=== PATIENT | male | born 1990 | race Caucasian/White ===

== ENCOUNTER 2017-01-02 08:47 | Emergency (ER) | payer OTHER ==
[2017-01-02 09:01] VITALS: BP 128/76
--- NOTE | 2017-01-02 09:07 | UC ---
Throat Pain/Nasal Ryley HPI - HPI Summary HPI Summary: 26 yo healthy male reports sudden uvula swelling this morning upon waking reports initially was difficult to breath but resolved within 15 minutes, now reports mild swelling and no difficulty breathing. He was concerned and wanted to be evaluated. Denies sore throat. no fevers or chills. Feels that he has had a mild cold with runny nose the last week. reports this happened once last summer when he was driving to work and reports acute onset of uvula swelling which resolved in 15-20 minutes. Patient reports he drank "a lot of alcohol" last night, and has had decrease water intake the last 2 days. - History of Current Complaint Chief Complaint: UCGeneralIllness Stated Complaint: SORE THROAT Time Seen by Provider: 01/02/17 09:06 Hx Obtained From: Patient Onset/Duration: Sudden Onset Severity: Moderate Pain Intensity: 0 Pain Scale Used: 0-10 Numeric Cough: None Associated Signs & Symptoms: Positive: Negative, Nasal Discharge. Negative: Dysphagia, Drooling, Wheezing - Epiglottits Risk Factors Epiglottis Risk Factors: Sudden Onset - Allergies/Home Medications Allergies/Adverse Reactions: Allergies Allergy/AdvReac Type Severity Reaction Status Date / Time No Known Allergies Allergy Verified 01/02/17 08:57 Home Medications: Home Medications Ibuprofen TAB* [Advil TAB*] 400 mg PO Q6H PRN 01/02/17 [History Confirmed ] PMH/Surg Hx/FS Hx/Imm Hx Previously Healthy: Yes - Surgical History Surgical History: None - Family History Known Family History: Positive: Hypertension - Social History Occupation: Employed Full-time Lives: With Family Alcohol Use: Occasionally Substance Use Type: None Smoking Status (MU): Former Smoker Have You Smoked in the Last Year: No When Did the Patient Quit Smoking/Using Tobacco: 2014 - Immunization History Most Recent Influenza Vaccination: Not the 2016/2016 Season Hx Tetanus, Diphtheria Vaccination: Yes Vaccination Up to Date: Yes Review of Systems Constitutional: Negative Skin: Negative Eyes: Negative ENT: Other - uvula swelling Respiratory: Negative Cardiovascular: Negative Gastrointestinal: Negative Genitourinary: Negative Motor: Negative Neurovascular: Negative Musculoskeletal: Negative Neurological: Negative Psychological: Negative All Other Systems Reviewed And Are Negative: Yes Physical Exam Triage Information Reviewed: Yes Appearance: Well-Appearing, No Pain Distress, Well-Nourished Vital Signs: Initial Vital Signs Temp 98.2 F 01/02/17 08:55 Pulse 68 01/02/17 08:55 Resp 16 01/02/17 08:55 BP 128/76 01/02/17 08:55 Pulse Ox 100 01/02/17 08:55 Vital Signs Reviewed: Yes Eye Exam: Normal Eyes: Positive: Conjunctiva Clear ENT: Positive: TMs normal, Other: - uvula noted to be mildly edematous, no erythema or exudate noted, no drooling or muffles voice. Negative: Nasal congestion Neck exam: Normal Neck: Positive: Supple, Nontender, No Lymphadenopathy Respiratory: Positive: Chest non-tender, Lungs clear, Normal breath sounds, No respiratory distress, No accessory muscle use Cardiovascular: Positive: RRR, No Murmur, Pulses Normal, Brisk Capillary Refill Neurological Exam: Normal Neurological: Positive: Alert Psychological Exam: Normal Skin Exam: Normal Throat Pain/Nasal Course/Dx - Differential Dx/Diagnosis Differential Diagnosis/HQI/PQRI: URI Provider Diagnoses: 1. Non-infectious Uvulitis Discharge - Discharge Plan Condition: Stable Disposition: HOME Patient Education Materials: Uvulitis (ED) Referrals: No Primary Care Phys,NOPCP [Primary Care Provider] - Additional Instructions: You have been diagnosed with non-infectious isolate uvulitis thought to be secondary to dehydration, also in the setting of snoring and alcohol use. Increase your fluid intake today with cold fluids, ice chips. Prior and after drinking alcohol be sure to hydrate yourself. If you have any concerning symptoms go to the emergency room.
== END 2017-01-02 09:32 | disposition home or self-care (01) ==
LOC: UCCORT 08:47
DX: K12.2 Cellulitis and abscess of mouth (principal); Z87.891 Personal history of nicotine dependence
CPT/HCPCS: 99201; G0463

== ENCOUNTER 2017-05-10 08:09 | Emergency (ER) | payer OTHER ==
[2017-05-10 08:30] VITALS: BP 126/85
--- NOTE | 2017-05-10 08:34 | UC ---
Skin Complaint HPI - HPI Summary HPI Summary: FOUND SOME DRY BLOOD ON HIS [place] YESTERDAY , MILD TENDERNESS, NO SWELLING , NO REDNESS, NO DISCHARGE - History of Current Complaint Chief Complaint: UCGeneralIllness Time Seen by Provider: 05/10/17 08:24 Stated Complaint: BLEEDING FROM NAVEL Hx Obtained From: Patient Onset/Duration: Gradual Onset, Lasting Days - 1, Resolved Timing: Intermittent Episodes Lasting: - 1 DAY Onset Severity: Mild Current Severity: None Location: Discrete - [place] Character: Pain Aggravating: Touch Alleviating: Nothing Associated Signs & Symptoms: Positive: Negative - Allergy/Home Medications Allergies/Adverse Reactions: Allergies Allergy/AdvReac Type Severity Reaction Status Date / Time No Known Allergies Allergy Verified 05/10/17 08:19 Home Medications: Home Medications NK [No Home Medications Reported] 05/10/17 [History Confirmed 05/10/17] Review of Systems Constitutional: Negative Skin: Negative Eyes: Negative ENT: Negative Respiratory: Negative All Other Systems Reviewed And Are Negative: Yes PMH/Surg Hx/FS Hx/Imm Hx Previously Healthy: Yes - Surgical History Surgical History: None - Family History Known Family History: Positive: Hypertension - Social History Alcohol Use: Occasionally Substance Use Type: None Smoking Status (MU): Former Smoker Have You Smoked in the Last Year: No When Did the Patient Quit Smoking/Using Tobacco: 2014 - Immunization History Most Recent Influenza Vaccination: Not the 2015/2016 Season Most Recent Tetanus Shot: Unknown Most Recent Pneumonia Vaccination: N/A Hx Tetanus, Diphtheria Vaccination: Yes Vaccination Up to Date: Yes Physical Exam Triage Information Reviewed: Yes Appearance: Well-Appearing, No Pain Distress, Well-Nourished Vital Signs: Initial Vital Signs Temp 97.4 F 05/10/17 08:19 Pulse 60 05/10/17 08:19 Resp 16 05/10/17 08:19 BP 126/85 05/10/17 08:19 Pulse Ox 100 05/10/17 08:19 Vital Signs Reviewed: Yes Eyes: Positive: Conjunctiva Clear ENT Exam: Normal ENT: Positive: Normal ENT inspection, Hearing grossly normal, Pharynx normal Neck: Positive: Supple, Nontender, No Lymphadenopathy Respiratory: Positive: Chest non-tender, Lungs clear, Normal breath sounds, No respiratory distress Cardiovascular: Positive: RRR, No Murmur, Pulses Normal Abdominal Exam: Normal Abdomen Description: Positive: Nontender, Soft, Other: - UMBILICUS: NO BLEEDING , NO SWELLING, NO ERYTHE, NO LESION OR ABSCESS SEEN. Negative: CVA Tenderness ( R), CVA Tenderness (L), Distended, Guarding Bowel Sounds: Positive: Present Course/Dx - Diagnoses Provider Diagnoses: OBSERVATION FOR THE CONDITION NOT FOUND Discharge - Discharge Plan Condition: Stable Disposition: HOME Referrals: No Primary Care Phys,NOPCP [Primary Care Provider] - If Needed Additional Instructions: NORMAL PHYSICAL EXAM OF THE ABDOMEN / [place] , NO BLEEDING, NO ABSCESS, NO REDNESS SEEN CONT. TO MONITOR, IF NOTED ANY ABNORMAL FINDING / BLEEDING, MAY RETURN BACK TO THE CLINIC
== END 2017-05-10 08:37 | disposition home or self-care (01) ==
LOC: UCCORT 08:09
DX: Z03.89 Encounter for observation for other suspected diseases and conditions ruled out (principal); Z87.891 Personal history of nicotine dependence
CPT/HCPCS: 99211; G0463

== ENCOUNTER 2017-06-23 13:22 | Emergency (ER) | payer SELFPAY ==
[2017-06-23 13:48] VITALS: BP 141/94
[2017-06-23] MEDS ORDERED: Ibuprofen TAB* 400 MG PO ONE (14:03)
--- NOTE | 2017-06-23 14:07 | UC ---
Back Pain HPI - HPI Summary HPI Summary: Pt presents with c/o mild lumbar back pain. 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 Pt states felt fullness in left lower lumbar spine. Pt states his sx improved and again yesterday was in simiar stance with reactivation of discomfort. Pt denies paresthesia, radiation, ext weakness. Pt denies bowel/bladder changes. Pt states has not taken any analgesia. No h/o similar. Pt states pain better after shower. Slight better with stretching. Notices pain increases with sitting or remaining in position too long. pt withotu other complaints pt's medications reviewed at this visit - History of Current Complaint Chief Complaint: UCBackPain Stated Complaint: LOWER BACK INJURY WC Time Seen by Provider: 06/23/17 13:49 Hx Obtained From: Patient Onset/Duration: Sudden Onset, Gradual Onset Timing: Constant, Intermittent Severity Initially: Moderate Severity Currently: Mild Pain Intensity: 2 Pain Scale Used: 0-10 Numeric Character: Dull, Aching, Spasmodic Aggravating: Movement Alleviating: Rest Associated Signs And Symptoms: Positive: Negative - Allergies/Home Medications Allergies/Adverse Reactions: Allergies Allergy/AdvReac Type Severity Reaction Status Date / Time No Known Allergies Allergy Verified 06/23/17 13:48 PMH/Surg Hx/FS Hx/Imm Hx Previously Healthy: Yes - Surgical History Surgical History: None - Family History Known Family History: Positive: Hypertension - Social History Occupation: Employed Full-time Lives: With Family Alcohol Use: Occasionally Substance Use Type: None Smoking Status (MU): Former Smoker Have You Smoked in the Last Year: No When Did the Patient Quit Smoking/Using Tobacco: 2014 - Immunization History Most Recent Influenza Vaccination: no Most Recent Tetanus Shot: Unknown Most Recent Pneumonia Vaccination: N/A Hx Tetanus, Diphtheria Vaccination: Yes Vaccination Up to Date: Yes Review of Systems Constitutional: Negative Skin: Negative Eyes: Negative ENT: Negative Respiratory: Negative Cardiovascular: Negative Gastrointestinal: Negative Genitourinary: Negative Motor: Negative Neurovascular: Negative Musculoskeletal: Other: - lumbar back pain Neurological: Negative Psychological: Negative Is Patient Immunocompromised?: No All Other Systems Reviewed And Are Negative: Yes Physical Exam Triage Information Reviewed: Yes Appearance: Well-Appearing, No Pain Distress, Well-Nourished Vital Signs: Initial Vital Signs Temp 98.1 F 06/23/17 13:42 Pulse 75 06/23/17 13:42 Resp 16 06/23/17 13:42 BP 141/94 06/23/17 13:42 Pulse Ox 100 06/23/17 13:42 Vital Signs Reviewed: Yes Eye Exam: Normal ENT: Positive: Hearing grossly normal Neck: Positive: Supple, Nontender, No Lymphadenopathy Respiratory Exam: Normal Respiratory: Positive: Chest non-tender Cardiovascular: Positive: RRR, No Murmur, Pulses Normal - 2+ DP b/l Musculoskeletal: Positive: Other: - No pain c/t/l/s spinous process + TTP paraspinal mid lumbar >R with palpable spasm- reproducible point tender + SLE b/ l with little discomfort + flex/ext knee, ankle + great to ext Neurological: Positive: Other: - 2+ patellar b/l no clonus + gross sensation throughout Psychological Exam: Normal Diagnostics - Radiology No standard instances Xray Interpretation: Positive (See Comments) - no acute process, fx Radiology Interpretation Completed By: Radiologist Re-Evaluation - Re-Evaluation First Eval Re-Evaluation Time: 14:45 Change: Improved Comment: Pt reports pain improved following motrin. reviewed motrin/apap. rest. stretch. heat and return precautions. Pt in agreement with plan Back Pain Course/Dx - Course Course Of Treatment: Pt with left lumbar paraspinal discomfort following restraining a person at work. Pt with palpable lumbar paraspinal muscle spasm. Pt neurovascular intact wiithout concerning hx. will check imaging. motrin. heat. stretch. pcp recheck. return precautions discussed. Pt comfortable and in agreement with plan - Differential Dx/Diagnosis Provider Diagnoses: low back pain, muscle spasm Discharge - Discharge Plan Condition: Stable Disposition: HOME Patient Education Materials: Low Back Strain (ED) Referrals: No Primary Care Phys,NOPCP [Primary Care Provider] - Additional Instructions: - Apply moist heat 20 minutes at a a time, 2-3 times a day. Once your muscles are warm, slow-gentle stretching exercises are important - Alternate ibuprofen (Advil, Motrin) 600mg and tylenol every 3 hours for pain. Take with food. do NOT take for more than 4-5 days. Take with food - Schedule a follow-up appointment with your primary doctor for early next week. - If you develop severe pain in your lower legs, leg weakness, changes to bowel or bladder, any other concerns you should to go an emergency department for further evaluation - Avoid heavy lifting, straining or pulling - Contact your doctor or return with any questions or concerns
--- NOTE | 2017-06-23 15:03 | RAD ---
INDICATION: Back pain COMPARISON: None TECHNIQUE: AP and lateral views were obtained . FINDINGS: Bones: There are no acute bony findings. There are no significant osteoarthritic findings. Alignment: Normal Disc spaces: The disc spaces are well-maintained Soft tissues: There are no soft tissue abnormalities. IMPRESSION: NEGATIVE EXAMINATION.
== END 2017-06-23 14:54 | disposition home or self-care (01) ==
LOC: UCCORT 13:22
DX: M54.5 Low back pain (principal); M62.838 Other muscle spasm; Z87.891 Personal history of nicotine dependence
CPT/HCPCS: 72100; 99212; A9270-GY; G0463

== ENCOUNTER 2019-04-06 20:28 | Emergency (ER) | payer BC, OTHER ==
[2019-04-06 21:21] VITALS: BP 132/77
--- NOTE | 2019-04-06 21:42 | UC ---
Skin Complaint HPI - HPI Summary HPI Summary: 28-year-old male who found a tick on his left forearm which he thinks has only been there a few hours. - History of Current Complaint Chief Complaint: UCSkin Time Seen by Provider: 04/06/19 21:34 Stated Complaint: TICK BITE Hx Obtained From: Patient Onset/Duration: Sudden Onset Skin Exposure Onset/Duration: Minutes Ago Timing: Constant Onset Severity: Mild Current Severity: Mild Pain Intensity: 0 Location: Other - Left forearm Aggravating Factor(s): Nothing Alleviating Factor(s): Nothing Associated Signs & Symptoms: Positive: Negative - Allergy/Home Medications Allergies/Adverse Reactions: Allergies Allergy/AdvReac Type Severity Reaction Status Date / Time No Known Allergies Allergy Verified 04/06/19 21:22 PMH/Surg Hx/FS Hx/Imm Hx Previously Healthy: Yes - Surgical History Surgical History: None - Family History Known Family History: Positive: Hypertension - Social History Alcohol Use: Occasionally Substance Use Type: None Smoking Status (MU): Former Smoker Have You Smoked in the Last Year: No When Did the Patient Quit Smoking/Using Tobacco: 2014 - Immunization History Most Recent Influenza Vaccination: no Most Recent Tetanus Shot: Unknown Most Recent Pneumonia Vaccination: N/A Hx Tetanus, Diphtheria Vaccination: Yes Vaccination Up to Date: Yes Review of Systems All Other Systems Reviewed And Are Negative: Yes Skin: Positive: Other - Patient noticed a very small tick in his left forearm while he was driving. He believes it has only been there a few hours. Physical Exam Triage Information Reviewed: Yes Appearance: Well-Appearing, No Pain Distress, Well-Nourished Vital Signs: Initial Vital Signs Temp 97.6 F 04/06/19 21:19 Pulse 72 04/06/19 21:19 Resp 19 04/06/19 21:19 BP 132/77 04/06/19 21:19 Pulse Ox 99 04/06/19 21:19 Vital Signs Reviewed: Yes Skin: Positive: Other - Patient has an extremely small black tick minimally embedded in his left forearm which was removed without difficulty using the tick twister. Patient tolerated procedure well. There was not even a red kartik therefore I don't think the tick was embedded very long if at all. Course/Dx - Course Course Of Treatment: Patient tolerated procedure well. Information on tick bites and Lyme disease was given a patient - Diagnoses Provider Diagnosis: Tick bite Discharge - Sign-Out/Discharge Documenting (check all that apply): Patient Departure All imaging exams completed and their final reports reviewed: No Studies - Discharge Plan Condition: Good Disposition: HOME Patient Education Materials: Tick Bite (ED) Referrals: No Primary Care Phys,NOPCP [Primary Care Provider] - Care [facility] [Outside] Additional Instructions: Follow-up with your primary care provider if you develop any fever, joint aches or rashes on your body over the next 2-4 weeks. - Billing Disposition and Condition Condition: GOOD Disposition: Home - Attestation Statements Provider Attestation: Per institutional requirements, I have reviewed the chart, however, I was not consulted specifically or made aware of this patient by the midlevel provider. I did not personally evaluate, interact with , or disposition this patient.
== END 2019-04-06 21:44 | disposition home or self-care (01) ==
LOC: UCCORT 20:28
DX: T63.481A Toxic effect of venom of other arthropod, accidental (unintentional), initial encounter (principal); Y92.9 Unspecified place or not applicable; Z87.891 Personal history of nicotine dependence
CPT/HCPCS: 99211; G0463

== ENCOUNTER 2019-12-09 11:47 | Emergency (ER) | payer BC ==
[2019-12-09 12:51] VITALS: BP 123/76
[2019-12-09 12:53] LABS: Influenza A Molecular POSITIVE (Negative)
--- NOTE | 2019-12-09 13:09 | UC ---
FLU HPI - HPI Summary HPI Summary: 28 year old male symptoms started today- headache, sore throat, cough- non- productive mainly. No SOB, no GI symptoms. fever- 101 ~ 8AM. No PMH, medications as listed. No flu vaccine - History of Current Complaint Chief Complaint: UCRespiratory Stated Complaint: FEVER,COUGH Time Seen by Provider: 12/09/19 13:09 Hx Obtained From: Patient Onset/Duration: Sudden Onset, Lasting Days Severity Currently: Mild Severity Initially: Mild Pain Intensity: 3 Pain Scale Used: 0-10 Numeric Associated Signs & Symptoms: Positive: Fever, T Max - 101 - Risk Factors Influenza Risk Factors: Negative - Allergy/Home Medications Allergies/Adverse Reactions: Allergies Allergy/AdvReac Type Severity Reaction Status Date / Time No Known Allergies Allergy Verified 12/09/19 12:51 Home Medications: Home Medications Emtricitaloine Tenovir 200/300 1 dose PO DAILY 12/09/19 [History Confirmed 12/09] Ondansetron [Ondansetron Odt] 4 mg PO Q8H PRN 12/09/19 [History Confirmed ] Oseltamivir CAP* [Tamiflu CAP*] 75 mg PO BID #10 cap 12/09/19 [Rx] Raltegravir* [Isentress*] 400 mg PO BID 12/09/19 [History Confirmed 12/09/19] Sambucol Cold Flu Relief 1 dose PO Q4H PRN 12/09/19 [History Confirmed 12/09/19] PMH/Surg Hx/FS Hx/Imm Hx Previously Healthy: Yes - Surgical History Surgical History: None - Family History Known Family History: Positive: Hypertension - Social History Occupation: Employed Full-time - network security officer Alcohol Use: Occasionally Substance Use Type: None Smoking Status (MU): Never Smoked Tobacco Have You Smoked in the Last Year: No When Did the Patient Quit Smoking/Using Tobacco: 2014 - Immunization History Most Recent Influenza Vaccination: no Most Recent Tetanus Shot: Unknown Most Recent Pneumonia Vaccination: N/A Hx Tetanus, Diphtheria Vaccination: Yes Vaccination Up to Date: Yes Review of Systems All Other Systems Reviewed And Are Negative: Yes Constitutional: Positive: Fever, Fatigue Eyes: Positive: Negative Respiratory: Positive: Cough. Negative: Shortness Of Breath Cardiovascular: Positive: Negative Motor: Positive: Negative Musculoskeletal: Positive: Myalgia Neurological/Mental Status: Positive: Headache - frontal Psychological: Positive: Negative Is Patient Immunocompromised?: No Physical Exam Triage Information Reviewed: Yes Appearance: No Pain Distress, Well-Nourished, Ill-Appearing - moderate Vital Signs: Initial Vital Signs Temp 100.2 F 12/09/19 12:43 Pulse 89 12/09/19 12:43 Resp 20 12/09/19 12:43 BP 123/76 12/09/19 12:43 Pulse Ox 98 12/09/19 12:43 Vital Signs Reviewed: Yes Eyes: Positive: Conjunctiva Clear ENT: Positive: Pharynx normal, TMs normal, Tonsillar swelling - minmal chronic appearing b/l, Sinus tenderness - b/l frontal minimal, Uvula midline. Negative : Pharyngeal erythema, Tonsillar exudate Neck: Positive: Supple, Nontender, No Lymphadenopathy. Negative: Nuchal Rigidity, Enlarged Nodes @ Respiratory: Positive: Chest non-tender, Lungs clear, Normal breath sounds, No respiratory distress, No accessory muscle use. Negative: Respiratory distress, Decreased breath sounds, Crackles, Rhonchi, Stridor, Wheezing Cardiovascular: Positive: RRR, No Murmur Neurological: Positive: Alert Skin: Negative: Rashes Flu Course/Dx - Course Course Of Treatment: Influenza - Increase fluid intake - Tamilfu to help decrease symtoms, duration of disease. - Over the counter medications as needed for symptoms. - Go to ER with increased headache, increased pain, fever > 102 after medications. - Differential Dx/Diagnosis Differential Diagnosis/HQI/PQRI: Influenza Provider Diagnosis: Influenza Discharge ED - Sign-Out/Discharge Documenting (check all that apply): Patient Departure All imaging exams completed and their final reports reviewed: No Studies - Discharge Plan Condition: Good Disposition: HOME Prescriptions: Oseltamivir CAP* [Tamiflu CAP*] 75 mg PO BID #10 cap Patient Education Materials: Influenza (DC) Forms: *Work Release Referrals: No Primary Care Phys,NOPCP [Primary Care Provider] - Additional Instructions: - Increase fluid intake - Tamilfu to help decrease symtoms, duration of disease. - Over the counter medications as needed for symptoms. - Go to ER with increased headache, increased pain, fever > 102 after medications. - Billing Disposition and Condition Condition: GOOD Disposition: Home
== END 2019-12-09 13:32 | disposition home or self-care (01) ==
LOC: UCCORT 11:47
DX: J11.1 Influenza due to unidentified influenza virus with other respiratory manifestations (principal)
CPT/HCPCS: 87651; 99212; G0463